=== PATIENT | male | born 1965 | race African-American/Black ===

== ENCOUNTER 2023-09-24 17:18 | Emergency (ER) | payer BC, SELFPAY ==
--- NOTE | ~2023-09-24 | XR_ITS ---
EXAMINATION: XR hand RT min 3V DATE: 09/24/2023 18:20 INDICATION: Pain and swelling of right hand second digit. TECHNIQUE: 3 views of right hand were obtained. COMPARISON: None. FINDINGS: There is abnormal flexion of fifth distal interphalangeal joint. There is an old healed fra cture of fifth metacarpal. No acute fracture. There is mild osteoarthritis of triscaphe joint, second metacarpophalangeal joint, and some of the interphalangeal joints. There is moderate osteoarthritis of second distal interphalangeal joint. There is a small focus of heterotopic ossification acute ulna r aspect of second distal interphalangeal joint. IMPRESSION: 1. Polyarticular osteoarthritis. 2. Abnormal flexion of fifth distal interphalangeal joint. Reviewed, dictated and finalized at location E.
[2023-09-24 17:36] VITALS: BP 174/86; PULSE 88; RESP 16; TEMP 37.2; O2SAT 97
--- NOTE | 2023-09-24 18:21 | ED.GENADULT ---
HPI - General Adult General Chief complaint: Extremity Injury, Upper Stated complaint: Right Hand Pain Source: patient Mode of arrival: ambulatory Limitations: no limitations History of Present Illness HPI narrative: Patient presents for evaluation of pain, swelling, and redness in the right hand for the last 4 days. Swelling is most prominent in the 2nd digit of that hand. Pain is constant, rated 4/10 in severity, and without descriptive quality. He woke from sleep in the morning with his symptoms in the persisted since that time. No history of similar symptoms. He is right-hand dominant. No history of gout. He does drink 6 tall boys of beer daily. He reports chronic deformity in both that digit and the fifth digit of the right hand. He states that deformity in 2nd digit does not allow him to fully flex at the MCP joint but his current symptoms restrict his movement much more than his baseline. He denies any fever, chills, nausea, vomiting, drainage from the affected area. He smokes cigars. Related Data Allergies Allergy/AdvReac Type Severity Reaction Status Date / Time No Known Allergies Allergy Verified 09/24/23 18:06 Review of Systems Review of Systems: CONSTITUTIONAL: Denies fever, chills, or sweats. EYES: Denies visual changes, redness, or discharge. ENT: Denies rhinorrhea, congestion, sore throat, or otalgia. CARDIOVASCULAR: Denies chest pain or palpitations RESPIRATORY: Denies cough or dyspnea. GASTROINTESTINAL: Denies abdominal pain, nausea, vomiting, or diarrhea. GENITOURINARY: Denies dysuria or hematuria. SKIN: Reports redness to the right hand, most prominent in the 2nd digit. MUSCULOSKELETAL: Reports pain and swelling in the right hand, most prominent in the 2nd digit. NEUROLOGIC: Denies headache, numbness, dizziness, or weakness. PSYCHIATRIC: Denies anxiety or depression. [facility] Past Medical History Medical History No pertinent past medical history Family History Family History Mother Unknown family medical history Social History Social History Smoking status: Current every day smoker Tobacco type: cigars Alcohol intake: current Drinks per week: 42 Alcohol use details: beers Substance use: current Substance use type: marijuana Gender identity (if verbalized by the patient): Male Spiritual care concerns: No Exam Narrative: GENERAL: Well-appearing, well-nourished, and in no acute distress. HEAD: Normocephalic, atraumatic. EYES: PERRLA and EOMI. ENT: Nares clear, no rhinorrhea or epistaxis. Mucous membranes moist. Oropharynx without tonsillar hypertrophy exudate or other lesions. Bilateral TMs pearly gould nonbulging NECK: Supple. No adenopathy or masses. No carotid bruits or JVD CHEST: Clear to auscultation. No respiratory distress. No wheezes rales or rhonchi HEART: Regular rate and rhythm. No murmur heard. Normal peripheral pulses. ABDOMEN: Soft, nontender, nondistended, normal active bowel sounds. EXTREMITIES: Decreased range of motion of the MCP, PIP, DIP joints of the 2nd digit of the right hand. There is soft tissue swelling to the right hand including the 2nd digit There is some tenderness to palmar aspect of right hand overlying the distal metacarpal of the 2nd digit. SKIN: There is erythema to the dorsal aspect of the right hand extending into the 2nd digit NEURO: No focal deficits. Alert and oriented x3. PSYCH: Normal mood and affect. Course Course Emergency Course: this is a 58-year-old male who presented for evaluation of swelling, pain and redness in the right hand. Top differentials would include gout versus abscess formation with cellulitis. Recommended patient go to the emergency department for further evaluation including CT scan to rule out drainable flui
== END 2023-09-24 18:50 | disposition left against medical advice (07) ==
PROVIDERS: Emergency Provider Nurse Practitioner
DX: R22.31 Localized swelling, mass and lump, right upper limb (principal); F17.290 Nicotine dependence, other tobacco product, uncomplicated; F12.90 Cannabis use, unspecified, uncomplicated
CPT/HCPCS: 73130; 99203; G0463

== ENCOUNTER 2025-02-12 18:14 | Emergency (ER) | payer SELFPAY ==
[2025-02-12 18:21] VITALS: BP 146/79; PULSE 62; RESP 18; TEMP 36.3; O2SAT 98
--- NOTE | 2025-02-12 19:21 | ED.SKABFB ---
HPI - Skin/Abscess/Foreign Bdy General Chief complaint: Skin/Abscess/Foreign Body Stated complaint: Skin Rash LT Arm Time Seen by Provider: 02/12/25 19:10 Source: patient, RN notes reviewed and old records reviewed Mode of arrival: ambulatory Limitations: no limitations History of Present Illness HPI narrative: 60 year old male who presents to [facility] care with complaints of raised itchy rash to his left elbow region which started 3-4 days ago which has vesicles and raised lesions on area. Patient reports did possible have some exposure to poision plants in the bushes. Patient reports that he has been applying calamine ointment to his left elbow. MD complaint: rash Onset (ago): day(s) (3-4 days) Severity: moderate Quality: pruritic Treatments prior to arrival: other (calamine ointment) Related Data Allergies Allergy/AdvReac Type Severity Reaction Status Date / Time No Known Allergies Allergy Verified 02/12/25 18:33 Review of Systems Review of Systems: CONSTITUTIONAL: Denies fever, chills, or sweats. CARDIOVASCULAR: Denies chest pain, palpitations, or edema. RESPIRATORY: Denies cough or dyspnea. SKIN: Reports red raised rash with some vesicles noted to left elbow area after possible exposure to poison plants. MUSCULOSKELETAL: Denies joint pain or myalgia. NEUROLOGIC: Denies headache, numbness, or weakness. All systems reviewed & are unremarkable except as noted in HPI and below PMFSH Past Medical History Medical History No pertinent past medical history Family History Family History Mother Unknown family medical history Social History Social History Smoking status: Current every day smoker Tobacco type: cigars Alcohol intake: current Drinks per week: 42 Alcohol use details: beers Substance use: current Substance use type: marijuana Gender identity (if verbalized by the patient): Male Spiritual care concerns: No Comments At time of signature, agree with nursing past medical, surgical, social and family history. There is no relevant family history pertinent to the presenting complaint Exam Narrative: GENERAL: Well-appearing, well-nourished, and in no acute distress. HEAD: Normocephalic, atraumatic. EYES: PERRLA, conjunctivae clear, and EOMI. ENT: Mucous membranes moist. Oropharynx without edema, erythema or lesions. NECK: Supple. No lymphadenopathy CHEST: Clear to auscultation. No respiratory distress.SAO2 98% on room air HEART: Regular rate and rhythm. SKIN: Warm, dry.? Patches of erythema and edema with red raised rash with some vesicle formation to left elbow area with itching NEURO:? Alert and oriented x3. PSYCH: Normal mood and affect Course Course Emergency Course: Patient is aware of diagnosis, understands and agrees to treatment plan.? Anticipatory guidance given.? Patient agrees to follow-up as directed and is aware of reasons to seek care at the emergency department. Portions of this record may have been created with voice recognition software Level of Care: Express Care Visit Vital Signs Vital signs: Vital Signs Temperature 36.3 C L 02/12/25 18:21 Pulse Rate 62 02/12/25 18:21 Respiratory Rate 18 02/12/25 18:21 Blood Pressure 146/79 H 02/12/25 18:21 Pulse Oximetry 98 02/12/25 18:21 Oxygen Delivery Room Air 02/12/25 18:21 Temperature 36.3 C L 02/12/25 18:21 Pulse Rate 62 02/12/25 18:21 Respiratory Rate 18 02/12/25 18:21 Blood Pressure 146/79 H 02/12/25 18:21 Pulse Oximetry 98 02/12/25 18:21 Oxygen Delivery Room Air 02/12/25 18:21 Reviewed MDM - Skin/Abscess/Foreign Bdy MDM Narrative Medical decision making narrative: Does not appear at this time to be erythema multiforme, bullous, SJS, TEN; no evidence at this time to suggest RMSF, endocarditis or Lyme disease; patient looks well, nontoxic and is tolerating oral intake; no neurologic signs or symptoms; no headache, photophobia or neck pain; afebrile; appropriate for initial outpatient treatment; discussed the importance of follow-up, patient agrees; question, viral exanthema, contact dermatitis, allergic dermatitis, eczema, urticaria. No soft palate or uvula edema, no tongue, lip edema or other mucosal involvement, no respiratory compromise, no stridor, no wheezing, no wheezing, no history of syncope, no hypotension, no nausea, vomiting, or diarrhea.? Instructed patient to go to nearest ER immediately for any worsening symptoms including but not limited to: fever, spreading rash, pain, sore throat, headache, dizziness, chest pain, trouble breathing, or any symptoms concerning to the patient. Differential Diagnosis Differential diagnosis: Likely abscess of skin or subcutaneous tissue, cellulitis, contact dermatitis and other (exposure to poison coty) Medical Records Attestation: I reviewed the patient's medical records. Critical Care Time Critical Care Time Critical Care Time: No Discharge Plan Discharge Clinical Impression: Contact dermatitis Qualifiers: Contact dermatitis type: allergic Contact dermatitis trigger: non-food plants Qualified Code(s): L23.7 - Allergic contact dermatitis due to plants, except food Patient Disposition: Home Condition: Stable Instructions: Contact Dermatitis (ED), Poison [place] (ED) Additional Instructions: Apply triamcinolone ointment to rash twice daily never apply to face watch for increasing infection--redness, swelling, drainage Tylenol or Ibuprofen for any fever or pain follow up with PCP in 7-10 days for a wound check recheck if develop fever, chills, increasing symptom Go to the ER if your symptoms become worse of if ANY new symptoms develop Zyrtec daily Pepcid 20 mg daily for 10 days Prednisone taper If your symptoms persist, change or worsen significantly before you can contact your personal physician then please, without delay, go to the emergency department for further evaluation. Follow-up with PCP in 7-10 days or sooner if needed Follow up with PCP soon in regards to your blood pressure which is elevated above threshold for referral. Blood pressure above 120/80 may indicate pre-hypertension. 146/79 Patient Language: Malay Prescriptions: New triamcinolone acetonide 0.1 % ointment 1 applic topical BID Qty: 80 0RF Rx Instructions: never apply to face prednisone 10 mg tablet 10 mg PO DIRECTED Qty: 21 0RF Rx Instructions: see taper instructions: 6 tabs day 1, 5 tab day 2, 4 tabs day 3 3 tabs day 4 2 tabs day 5, 1 tab day 6 famotidine [Pepcid] 20 mg tablet 20 mg PO DAILY Qty: 10 0RF Follow-up/Referrals: PHYSICIAN,CERTIFIED MAINTENANCE WELDER [Primary Care Provider, Internal Medicine] Time of Disposition: 19:35 Quality Pam Coma Scale Eyes: Open Verbal: Oriented and Alert Motor: Follows Commands [place] Coma Total Score: 15
== END 2025-02-12 19:45 | disposition home or self-care (01) ==
PROVIDERS: Emergency Provider Registered Nurse
DX: L23.7 Allergic contact dermatitis due to plants, except food (principal); F17.210 Nicotine dependence, cigarettes, uncomplicated
CPT/HCPCS: 99213; G0463